=== PATIENT | female | born 1970 | race American Indian/Alaskan Native ===

== ENCOUNTER 2019-03-23 23:11 | Emergency (ER) | payer OTHER ==
[~2019-03-23] VITALS: Ht 157.5 cm; Wt 117.9 kg
[2019-03-23 23:16] VITALS: BP_SYST 148
[2019-03-23] MEDS ORDERED: LORazepam 2 MG/ML VIAL (FOR ER USE) IM ONE (23:45)
[2019-03-24 00:43] VITALS: BP_SYST 139
== END 2019-03-24 00:43 | disposition home or self-care (01) ==
LOC: SED 23:11
DX: F41.9 Anxiety disorder, unspecified (principal); Z88.8 Allergy status to other drugs, medicaments and biological substances
CPT/HCPCS: 93005; 96372; 99283; J2060

== ENCOUNTER 2019-09-28 16:31 | Emergency (ER) | payer OTHER ==
[~2019-09-28] VITALS: Ht 157.5 cm; Wt 106.6 kg
[2019-09-28 16:31] VITALS: BP_SYST 106
[~2019-09-28 16:31] MED LIST: METH5TAB70 PO; METO25TA6 PO; VITAMIN B; [UNRECOGNIZED DRUG - CODE] PO; vitamin b2; vitamin d2; wixela INH
--- NOTE | 2019-09-28 16:35 | NUR ---
Patient triaged and placed in waiting room. VSS and patient appears in no acute distress at this time. Accompanied by SPOUSE, awaiting available bed, and MD notified of need for MSE.
--- NOTE | 2019-09-28 18:24 | NUR ---
BROUGHT BACK TO BED #7 AND REPORT GIVEN TO KATHI
--- NOTE | 2019-09-28 18:25 | NUR ---
Patient is awake, alert, and oriented x4. is at bedside. Patient states she went in to urgent care on Thursday and was seen for left knee pain. She was instructed to buy and wear a knee brace when walking, to take it off when not ambulatory. Patient states she was not wearing her knee brace yesterday while at work. She stepped up onto a deck and felt a "pop" in her left knee. She presents with left knee pain 10/10 that radiates down her lower left leg that feels like cramping. Patient denies any other issue.
[2019-09-28] MEDS ORDERED: HYDROcodone/ACETAMIN 7.5-325 MG TAB PO ONE (18:45)
--- NOTE | 2019-09-28 19:09 | NUR ---
US tech bedside from Radiology, Pt in stable condition
--- NOTE | 2019-09-28 19:09 | NUR ---
Elsy tyson in [facility] [place] - 09/28/19 at 1911 by CARROL Report given to EMORY Leyva for continuation of care.
--- NOTE | 2019-09-28 19:11 | NUR ---
Report given to EMORY Nix for continuation of care.
--- NOTE | 2019-09-28 19:47 | NUR ---
Isabela Garcia [employer]ARD[employer] bedside for Pt follow up
[2019-09-28 20:15] VITALS: BP_SYST 106
--- NOTE | 2019-09-28 20:15 | NUR ---
Patient given written and verbal discharge instructions and verbalizes understanding. ER MD discussed with patient the results and treatment provided. Patient in stable condition. ID arm band removed Rx of Voltaren Gel and Tramadol given. Patient educated on pain management and to follow up with PMD. Pain Scale 0/10 Opportunity for questions provided and answered. Medication side effect fact sheet provided.
== END 2019-09-28 20:15 | disposition home or self-care (01) ==
LOC: SED 16:31
DX: M25.562 Pain in left knee (principal); R03.0 Elevated blood-pressure reading, without diagnosis of hypertension; J45.909 Unspecified asthma, uncomplicated; I10 Essential (primary) hypertension; E07.9 Disorder of thyroid, unspecified; Z98.84 Bariatric surgery status; Z88.6 Allergy status to analgesic agent; Z88.8 Allergy status to other drugs, medicaments and biological substances
CPT/HCPCS: 73564; 93971; 99284

== ENCOUNTER 2021-12-19 21:53 | Observation (INO) | payer OTHER, SELFPAY ==
[~2021-12-19] VITALS: Ht 157.5 cm; Wt 111.6 kg
[2021-12-19 22:06] VITALS: BP_SYST 129
[2021-12-19] MEDS ORDERED: METH-373 PO (22:19)
[2021-12-19] MEDS ORDERED: NATE60TA PO (22:19)
[2021-12-19] MEDS ORDERED: MECO10005 PO (22:20)
[2021-12-19 23:20] LABS: BASOPHILS # (AUTO) 0.1 K/uL (0.0-0.2); BASOPHILS % (AUTO) 1.1 % (0.0-2.0); EOSINOPHILS # (AUTO) 0.3 K/uL (0.0-0.4); EOSINOPHILS % (AUTO) 3.2 % (0.0-4.0); HEMATOCRIT 44.9 % (36-48); HEMOGLOBIN 15.1 g/dL (12.0-16.0); LYMPHOCYTES # (AUTO) 2.3 K/uL (1.0-5.5); LYMPHOCYTES % (AUTO) 21.3 % (20.5-51.5); MEAN CORPUSCULAR HEMOGLOBIN 30 pg (27-31); MEAN CORPUSCULAR HGB CONC 34 % (32-36); MEAN CORPUSCULAR VOLUME 90 fL (79.0-98.0); MONOCYTES # (AUTO) 0.9 K/uL (0.0-1.0); MONOCYTES % (AUTO) 8.4 % (1.7-9.3); NEUTROPHILS # (AUTO) 7.1 K/uL (1.8-7.7); PLATELET COUNT (AUTO) 267 K/uL (130-430); RED CELL DISTRIBUTION WIDTH 13.8 % (9.0-15.0); WHITE BLOOD COUNT (AUTO) 10.8 K/uL (4.8-10.8)
[2021-12-19 23:41] LABS: CALCIUM 8.4 mg/dL (8.4-11.0); CREATININE 0.74 mg/dL (0.55-1.30); POTASSIUM 3.7 mmol/L (3.5-5.1)
[2021-12-19 23:50] LABS: THYROID STIMULATING HORMONE 0.01 uIu/mL (0.36-3.74); TOTAL BILIRUBIN 0.3 mg/dL (0.0-1.0)
[2021-12-20] MEDS ORDERED: MAGNESIUM SULFATE 50 ML IV ONE
[2021-12-20] MEDS ORDERED: ASPIRIN 81 MG TAB.CHEW PO ONE
[2021-12-20] MEDS ORDERED: dilTIAZem HCL IVP 5 MG/ML VIAL ONE ×2 (00:13→02:36)
[2021-12-20 01:02] LABS: FREE T4 (FREE THYROXINE) 1.5 ng/dl (0.8-1.5)
[2021-12-20 01:05] LABS: ALCOHOL, BLOOD < 3 mg/dL (<10)
[2021-12-20 01:24] LABS: PROTHROMBIN TIME 10.6 SECS (9.5-12.5)
[2021-12-20] MEDS ORDERED: dilTIAZem HCL IVP 5 MG/ML VIAL IVP ONE ×2 (02:30)
[2021-12-20] MEDS ORDERED: POTASSIUM CHLORIDE 20 MEQ TAB.PRT.SR PO ONE (02:45)
[2021-12-20] MEDS ORDERED: ACETAMINOPHEN 325 MG TABLET PO PRN (02:45)
[2021-12-20] MEDS ORDERED: ALBUTEROL SULFATE 0.083% 2.5 MG/3 ML VIAL.NEB INH PRN (02:45)
[2021-12-20] MEDS ORDERED: *LOVENOX 1MG/KG Q12H/PHARMACY XX ONE (03:00)
[2021-12-20 03:54] VITALS: BP_SYST 107
[2021-12-20] MEDS ORDERED: ENOXAPARIN SODIUM 120 MG/0.8 ML SYRINGE SUBCUT SCH (04:00)
[2021-12-20] MEDS ORDERED: METOPROLOL TARTRATE 25 MG TABLET ONE (07:13)
[2021-12-20] MEDS ORDERED: METOPROLOL TARTRATE 25 MG TABLET PO ONE (07:15)
[2021-12-20] MEDS: NORMAL SALINE 5 ML DISP.SYRIN IVF SCH ×3 (07:15→20:20)
[2021-12-20 07:37] LABS: BASOPHILS # (AUTO) 0.1 K/uL (0.0-0.2); BASOPHILS % (AUTO) 0.8 % (0.0-2.0); EOSINOPHILS # (AUTO) 0.4 K/uL (0.0-0.4); EOSINOPHILS % (AUTO) 4.2 % (0.0-4.0); HEMATOCRIT 43.4 % (36-48); HEMOGLOBIN 14.4 g/dL (12.0-16.0); LYMPHOCYTES % (AUTO) 22.6 % (20.5-51.5); MEAN CORPUSCULAR HEMOGLOBIN 30 pg (27-31); MEAN CORPUSCULAR HGB CONC 33 % (32-36); MEAN CORPUSCULAR VOLUME 90 fL (79.0-98.0); MONOCYTES # (AUTO) 0.7 K/uL (0.0-1.0); MONOCYTES % (AUTO) 8.3 % (1.7-9.3); NEUTROPHILS # (AUTO) 5.6 K/uL (1.8-7.7); NEUTROPHILS % (AUTO) 64.1 % (40.0-70.0); PLATELET COUNT (AUTO) 250 K/uL (130-430); RED BLOOD CELL COUNT(AUTO) 4.81 MIL/uL (4.2-6.2); RED CELL DISTRIBUTION WIDTH 13.8 % (9.0-15.0); WHITE BLOOD COUNT (AUTO) 8.7 K/uL (4.8-10.8)
[2021-12-20 07:48] LABS: ALBUMIN 2.9 g/dL (3.4-4.8); CALCIUM 8.4 mg/dL (8.4-11.0); CREATININE 0.64 mg/dL (0.55-1.30); POTASSIUM 3.9 mmol/L (3.5-5.1); TOTAL BILIRUBIN 0.5 mg/dL (0.0-1.0)
[2021-12-20] MEDS ORDERED: DILTIAZEM HCL 30 MG TABLET PO ONE (08:00)
[2021-12-20] MEDS ORDERED: DEXTROSE 50% JECT 50 ML DISP.SYRIN IVP PRN (08:00)
[2021-12-20] MEDS: methIMAzole 5 MG TABLET PO SCH (09:00)
[2021-12-20] MEDS ORDERED: MECOBALAMIN PO SCH (09:00)
[2021-12-20 09:33] VITALS: BP_SYST 121
[2021-12-20] MEDS: CYANOCOBALAMIN 1000 mCg TABLET PO SCH (10:02)
[2021-12-20] MEDS ORDERED: PROPRANOLOL HCL 80 MG (INDERAL LA 80MG) PO ONE (10:15)
[2021-12-20] MEDS ORDERED: NATEGLINIDE 60 MG TABLET PO SCH ×2 (11:30→12:00)
[2021-12-20 12:00] VITALS: BP_SYST 155
[2021-12-20] MEDS ORDERED: DILTIAZEM HCL 30 MG TABLET PO SCH (12:00)
[2021-12-20] MEDS: INSULIN REGULAR, HUMAN 100 UNITS/ML, 10 ML VIAL (humuLIN R) SUBCUT PRN ×2 (12:02→16:52)
[2021-12-20 16:00] VITALS: BP_SYST 110
[2021-12-20 20:00] VITALS: BP_SYST 118
[2021-12-20] MEDS: APIXABAN 2.5 MG TABLET PO SCH (21:24)
[2021-12-21 00:02] VITALS: BP_SYST 123
[2021-12-21] MEDS: NORMAL SALINE 5 ML DISP.SYRIN IVF SCH ×3 (05:16→21:14)
[2021-12-21] MEDS: INSULIN REGULAR, HUMAN 100 UNITS/ML, 10 ML VIAL (humuLIN R) SUBCUT PRN ×3 (06:45→17:38)
[2021-12-21 07:42] LABS: BASOPHILS # (AUTO) 0.1 K/uL (0.0-0.2); BASOPHILS % (AUTO) 0.7 % (0.0-2.0); EOSINOPHILS # (AUTO) 0.4 K/uL (0.0-0.4); EOSINOPHILS % (AUTO) 3.6 % (0.0-4.0); HEMATOCRIT 44.9 % (36-48); HEMOGLOBIN 14.9 g/dL (12.0-16.0); LYMPHOCYTES # (AUTO) 2.6 K/uL (1.0-5.5); LYMPHOCYTES % (AUTO) 22.5 % (20.5-51.5); MEAN CORPUSCULAR HEMOGLOBIN 30 pg (27-31); MEAN CORPUSCULAR HGB CONC 33 % (32-36); MEAN CORPUSCULAR VOLUME 91 fL (79.0-98.0); MONOCYTES # (AUTO) 0.8 K/uL (0.0-1.0); MONOCYTES % (AUTO) 6.5 % (1.7-9.3); NEUTROPHILS # (AUTO) 7.9 K/uL (1.8-7.7); NEUTROPHILS % (AUTO) 66.7 % (40.0-70.0); PLATELET COUNT (AUTO) 271 K/uL (130-430); RED BLOOD CELL COUNT(AUTO) 4.92 MIL/uL (4.2-6.2); RED CELL DISTRIBUTION WIDTH 14.2 % (9.0-15.0); WHITE BLOOD COUNT (AUTO) 11.8 K/uL (4.8-10.8)
[2021-12-21 08:00] VITALS: BP_SYST 141
[2021-12-21 08:09] LABS: ALBUMIN 2.7 g/dL (3.4-4.8); CALCIUM 8.3 mg/dL (8.4-11.0); CREATININE 0.62 mg/dL (0.55-1.30); POTASSIUM 4.6 mmol/L (3.5-5.1); TOTAL BILIRUBIN 0.7 mg/dL (0.0-1.0)
[2021-12-21] MEDS: PROPRANOLOL HCL 80 MG (INDERAL LA 80MG) PO SCH (08:26)
[2021-12-21] MEDS: methIMAzole 5 MG TABLET PO SCH ×2 (08:27→21:14)
[2021-12-21] MEDS: CYANOCOBALAMIN 1000 mCg TABLET PO SCH (08:27)
[2021-12-21] MEDS: APIXABAN 2.5 MG TABLET PO SCH ×2 (08:27→21:18)
[2021-12-21 12:00] VITALS: BP_SYST 140
[2021-12-21 16:00] VITALS: BP_SYST 136
[2021-12-21 20:00] VITALS: BP_SYST 120
[2021-12-21] MEDS ORDERED: ZOLPIDEM TARTRATE 5 MG TABLET PO ONE (21:00)
[2021-12-22] VITALS: BP_SYST 102
[2021-12-22] MEDS: NORMAL SALINE 5 ML DISP.SYRIN IVF SCH (06:00)
[2021-12-22 09:01] VITALS: BP_SYST 120
[2021-12-22] MEDS ORDERED: PROP80CA55 PO (09:02)
[2021-12-22] MEDS ORDERED: METF-379 PO (09:02)
[2021-12-22] MEDS: APIXABAN 2.5 MG TABLET PO SCH ×2 (09:26→20:30)
[2021-12-22] MEDS: methIMAzole 5 MG TABLET PO SCH ×2 (09:27→20:29)
[2021-12-22] MEDS: CYANOCOBALAMIN 1000 mCg TABLET PO SCH (09:29)
[2021-12-22] MEDS: PROPRANOLOL HCL 80 MG (INDERAL LA 80MG) PO SCH (09:29)
[2021-12-22 13:15] VITALS: BP_SYST 135
[2021-12-22] MEDS: INSULIN REGULAR, HUMAN 100 UNITS/ML, 10 ML VIAL (humuLIN R) SUBCUT PRN (13:26)
[2021-12-22 17:42] VITALS: BP_SYST 135
[2021-12-22 19:03] VITALS: BP_SYST 112
== END 2021-12-22 21:09 | disposition home or self-care (01) ==
LOC: SED 21:53 → INTOOBSV 12-20 02:40 → STU 12-20 02:40 → OBSVTOIN 12-20 02:40 → STU 12-20 08:11
PROVIDERS: ADMIT Internal Medicine Hospice and Palliative Medicine; ATTEND Internal Medicine Hospice and Palliative Medicine
DX: I48.20 Chronic atrial fibrillation, unspecified (principal); Z20.822 Contact with and (suspected) exposure to COVID-19; I48.0 Paroxysmal atrial fibrillation; E05.90 Thyrotoxicosis, unspecified without thyrotoxic crisis or storm; E11.9 Type 2 diabetes mellitus without complications; I10 Essential (primary) hypertension; E66.01 Morbid (severe) obesity due to excess calories; Z91.14 Patient's other noncompliance with medication regimen; Z79.84 Long term (current) use of oral hypoglycemic drugs; Z79.899 Other long term (current) drug therapy
CPT/HCPCS: 36415 ×2; 71045; 80053 ×3; 80061; 82607; 82962 ×3; 83036; 83735; 83880; 84439; 84443; 84484; 85025 ×3; 85379; 85610; 85730; 87426; 93005 ×2; 93306; 96365; 96366; 96372 ×4; 96375; 96376; 99285; G0378 ×3; G0482; J1650; J1815; J3475; J3490

== ENCOUNTER 2023-07-05 13:07 | Emergency (ER) | payer OTHER ==
[~2023-07-05] VITALS: Ht 157.5 cm; Wt 106.6 kg
[~2023-07-05 13:07] MED LIST changes: +MECO10005 PO; +METF-379 PO; +METH-373 PO; -METH5TAB70 PO; -METO25TA6 PO; +NATE60TA PO; +PROP80CA55 PO; -VITAMIN B; -[UNRECOGNIZED DRUG - CODE] PO; -vitamin b2; -vitamin d2; -wixela INH
[2023-07-05 13:24] VITALS: BP_SYST 126; PULSE 70; RESP 18; TEMP 98.3; O2SAT 98
[2023-07-05] MEDS ORDERED: IBUPROFEN 800 MG TABLET PO ONE (13:45)
[2023-07-05] MEDS ORDERED: TRAM50TA2 PO (14:21)
[2023-07-05] MEDS ORDERED: IBUP-1969 PO (14:21)
[2023-07-05] MEDS ORDERED: MORPHINE 4 MG INJ. 4 MG/ML VIAL IM ONE ×2 (14:30→15:00)
== END 2023-07-05 15:18 | disposition home or self-care (01) ==
LOC: SED 13:07
DX: S42.351A Displaced comminuted fracture of shaft of humerus, right arm, initial encounter for closed fracture (principal); J45.909 Unspecified asthma, uncomplicated; I10 Essential (primary) hypertension; Z88.1 Allergy status to other antibiotic agents; Z88.8 Allergy status to other drugs, medicaments and biological substances; Z79.899 Other long term (current) drug therapy; V18.0XXA Pedal cycle driver injured in noncollision transport accident in nontraffic accident, initial encounter; Y93.89 Activity, other specified; Y92.89 Other specified places as the place of occurrence of the external cause; Y99.8 Other external cause status
CPT/HCPCS: 99284; 82962; 73030; 96372; J2270